=== PATIENT | female | born 1975 | race Caucasian/White ===

== ENCOUNTER 2017-09-15 12:52 | Emergency (ER) | payer OTHER ==
[~2017-09-15] VITALS: Ht 154.9 cm; Wt 54.0 kg
[2017-09-15 12:59] VITALS: BP 130/70
== END 2017-09-15 13:29 | disposition home or self-care (01) ==
LOC: ER 12:53
DX: S00.511A Abrasion of lip, initial encounter (principal); Z88.5 Allergy status to narcotic agent; W22.8XXA Striking against or struck by other objects, initial encounter; Y93.89 Activity, other specified; Y92.89 Other specified places as the place of occurrence of the external cause; Y99.8 Other external cause status
CPT/HCPCS: 99284